=== PATIENT | female | born 1960 | race Caucasian/White ===

== ENCOUNTER 2018-05-22 15:34 | Inpatient (IN) | payer MEDICARE, MEDICAID ==
[~2018-05-22] VITALS: Ht 167.6 cm; Wt 79.0 kg
[2018-05-22] MEDS ORDERED: ALPR0.5T8 PO (15:53)
[2018-05-22] MEDS ORDERED: LEVE500T53 PO (15:53)
[2018-05-22] MEDS ORDERED: CARV12 PO (15:53)
[2018-05-22] MEDS ORDERED: GABA-531 PO (15:53)
[2018-05-22] MEDS ORDERED: PERCT PO (15:53)
[2018-05-22] MEDS ORDERED: AMLO-512 PO (15:53)
[2018-05-22] MEDS ORDERED: MIRT15 PO (15:53)
[2018-05-22] MEDS ORDERED: TRAZ150 PO (15:53)
[2018-05-22] MEDS ORDERED: CYCL10 PO (15:53)
[2018-05-22] MEDS ORDERED: DiphenhydrAMINE HCL 50 MG/ML VIAL IM ONE (16:15)
[2018-05-22] MEDS ORDERED: LORazepam 2 MG/ML VIAL IM ONE (16:15)
[2018-05-22] MEDS ORDERED: HALOPERIDOL LACTATE 5 MG/ML VIAL IM ONE (16:15)
[2018-05-22 16:31] LABS: BASOPHILS % (AUTO) 0.7 % (0.0-2.0); EOSINOPHILS % (AUTO) 2.4 % (1.0-6.0); HEMATOCRIT 33.3 % (36-46); HEMOGLOBIN 11.4 g/dL (12.0-16.0); LYMPHOCYTES # (AUTO) 1.2 K/uL (1.0-4.8); MEAN CORPUSCULAR HEMOGLOBIN 29.7 pg (26.0-34.0); MEAN CORPUSCULAR HGB CONC 34.2 G/dL (31.0-37.0); MEAN CORPUSCULAR VOLUME 87 fL (80-100); MONOCYTES # (AUTO) 0.6 K/uL (0.1-1.0); MONOCYTES % (AUTO) 8.7 % (2.0-9.0); NEUTROPHILS # (AUTO) 5.2 K/uL (1.8-7.7); NEUTROPHILS % (AUTO) 71.2 % (40.0-70.0); PLATELET COUNT (AUTO) 201 K/uL (150-450); RED BLOOD CELL COUNT(AUTO) 3.84 MIL/uL (4.00-5.20); RED CELL DISTRIBUTION WIDTH 12.8 % (11.5-14.5)
[2018-05-22 16:42] LABS: ANION GAP 11 mmol/L (8-16); CALCIUM, TOTAL 8.7 mg/dL (8.8-10.5); CARBON DIOXIDE 25 mmol/L (22-29); CHLORIDE 102 mmol/L (98-107); CREATININE 0.97 mg/dL (0.60-1.30); GLOMERULAR FILTR. RATE CALC 60 mL/min (>60); GLUCOSE,RANDOM 105 mg/dL (70-110); POTASSIUM 3.8 mmol/L (3.5-5.1); SODIUM SERUM 138 mmol/L (136-145); UREA NITROGEN, BLOOD 18 mg/dL (7-18)
[2018-05-22] MEDS ORDERED: ACETAMINOPHEN 325 MG TABLET PO PRN (16:45)
[2018-05-22 16:48] LABS: ALANINE AMINOTRANSFERASE 17 U/L (12-78); ALBUMIN 3.7 g/dL (3.4-5.0); ALKALINE PHOSPHATASE 76 U/L (46-116); ASPARTATE AMINOTRANSFERASE 21 U/L (15-37); BILIRUBIN,TOTAL 0.3 mg/dL (0.1-1.0); TOTAL PROTEIN, SERUM 7.8 g/dL (6.4-8.2)
[2018-05-22 18:11] VITALS: BP 123/58
[2018-05-22 18:14] LABS: APPEARANCE,URINE CLOUDY (CLEAR); BILIRUBIN,URINE NEGATIVE (NEGATIVE); GLUCOSE, URINE (UA) NEGATIVE (NEGATIVE); KETONES,URINE NEGATIVE (NEGATIVE); LEUKOCYTE ESTERASE ,URINE MODERATE (NEGATIVE); NITRATE,URINE NEGATIVE (NEGATIVE); OCCULT BLOOD,URINE SMALL (NEGATIVE); PROTEIN,URINE NEGATIVE (NEGATIVE); UROBILINOGEN,URINE 0.2 mg/dL (<=1.0)
[2018-05-22 18:17] LABS: AMPHET/METH SCREEN,URINE NEGATIVE (NEGATIVE); BARBITURATE SCREEN, URINE NEGATIVE (NEGATIVE); BENZODIAZEPINES SCREEN,URINE NEGATIVE (NEGATIVE); CANNABINOID SCREEN,URINE NEGATIVE (NEGATIVE); COCAINE SCREEN,URINE NEGATIVE (NEGATIVE); METHADONE SCREEN, URINE NEGATIVE (NEGATIVE); OPIATE SCREEN,URINE POSITIVE (NEGATIVE)
[2018-05-22 18:19] LABS: PHENCYCLIDINE SCREEN,URINE NEGATIVE (NEGATIVE)
[2018-05-22 18:21] LABS: BACTERIA,URINE Few /HPF (None Seen); SQUAMOUS EPITHELIAL CELL,UR Moderate /LPF (None Seen)
[2018-05-22] MEDS ORDERED: ONDANSETRON HCL 4 MG TABLET PO PRN (18:45)
[2018-05-22] MEDS ORDERED: GuaiFENesin/D-METHORPHAN [SUGAR-FREE] 200-20MG/10 ML SYRUP UDCUP PO PRN (18:45)
[2018-05-22] MEDS ORDERED: ALBUTEROL SULFATE HFA 90 MCG/PUFF 8 GM INHALER IH PRN (18:45)
[2018-05-22] MEDS ORDERED: MAGNESIUM HYDROXIDE SUSPENSION 30 ML UDCUP PO PRN (18:45)
[2018-05-22] MEDS ORDERED: LOPERAMIDE HCL 2 MG CAPSULE PO PRN (18:45)
[2018-05-22] MEDS ORDERED: MAG HYDROX/AL HYDROX/SIMETH ES 30 ML SUSPENSION UDCUP PO PRN (18:45)
[2018-05-22] MEDS ORDERED: NICOTINE 14 MG/24 HOUR PATCH TD PRN (18:45)
[2018-05-22] MEDS ORDERED: CloNIDine HCL 0.1 MG TABLET PO PRN (18:45)
[2018-05-22] MEDS ORDERED: PETROLATUM,WHITE 71 GM JELLY TP PRN (18:45)
[2018-05-22] MEDS: IBUPROFEN 400 MG TABLET PO PRN (18:51)
[2018-05-22] MEDS: GABAPENTIN 300 MG CAPSULE PO SCH (20:26)
[2018-05-22 21:07] VITALS: BP 136/89
[2018-05-22 21:30] VITALS: BP 118/66
[2018-05-22] MEDS: ZOLPIDEM TARTRATE 10 MG TABLET PO PRN (21:53)
[2018-05-22] MEDS: OLANZapine 5 MG RAPDIS TABLET PO PRN (22:03)
[2018-05-22 22:30] VITALS: BP 110/61
[2018-05-23] MEDS: LORazepam 2 MG TABLET PO PRN ×4 (02:52→23:58)
[2018-05-23] MEDS: IBUPROFEN 400 MG TABLET PO PRN ×2 (02:52→11:05)
[2018-05-23 02:54] VITALS: BP 133/72
[2018-05-23] MEDS ORDERED: PNEUMOCOCCAL VACCINE POLYVALENT 0.5 ML VIAL [PPSV23] IM ONE (03:15)
[2018-05-23 06:47] LABS: BASOPHILS % (AUTO) 0.5 % (0.0-2.0); EOSINOPHILS % (AUTO) 0.9 % (1.0-6.0); HEMATOCRIT 32.2 % (36-46); HEMOGLOBIN 11.3 g/dL (12.0-16.0); LYMPHOCYTES # (AUTO) 1.2 K/uL (1.0-4.8); LYMPHOCYTES % (AUTO) 24.2 % (22.0-44.0); MEAN CORPUSCULAR HEMOGLOBIN 30.4 pg (26.0-34.0); MEAN CORPUSCULAR VOLUME 87 fL (80-100); MONOCYTES # (AUTO) 0.5 K/uL (0.1-1.0); MONOCYTES % (AUTO) 9.2 % (2.0-9.0); NEUTROPHILS # (AUTO) 3.3 K/uL (1.8-7.7); NEUTROPHILS % (AUTO) 65.2 % (40.0-70.0); PLATELET COUNT (AUTO) 190 K/uL (150-450); RED BLOOD CELL COUNT(AUTO) 3.71 MIL/uL (4.00-5.20); RED CELL DISTRIBUTION WIDTH 12.7 % (11.5-14.5)
[2018-05-23 07:24] LABS: HEMOGLOBIN A1C 5.2 % (4.5-6.2)
[2018-05-23 07:35] LABS: ALANINE AMINOTRANSFERASE 15 U/L (12-78); ALBUMIN 3.5 g/dL (3.4-5.0); ALKALINE PHOSPHATASE 70 U/L (46-116); ANION GAP 10 mmol/L (8-16); ASPARTATE AMINOTRANSFERASE 22 U/L (15-37); BILIRUBIN,TOTAL 0.5 mg/dL (0.1-1.0); CALCIUM, TOTAL 8.4 mg/dL (8.8-10.5); CARBON DIOXIDE 27 mmol/L (22-29); CHLORIDE 106 mmol/L (98-107); CHOL/HDL RATIO 1.8 (3.9-5.7); CHOLESTEROL 153 mg/dL (131-200); CREATININE 0.71 mg/dL (0.60-1.30); GLOMERULAR FILTR. RATE CALC > 60 mL/min (>60); GLUCOSE,RANDOM 87 mg/dL (70-110); HDL CHOLESTEROL 87 mg/dL (40-60); LDL CHOL (CALC.) 61 mg/dL (0-130); POTASSIUM 3.8 mmol/L (3.5-5.1); SODIUM SERUM 143 mmol/L (136-145); THYROID STIMULATING HORMONE 0.66 uIU/mL (0.36-3.74); TOTAL PROTEIN, SERUM 7.6 g/dL (6.4-8.2); TRIGLYCERIDES 26 mg/dL (15-150); UREA NITROGEN, BLOOD 9 mg/dL (7-18)
[2018-05-23] MEDS: OLANZapine 5 MG RAPDIS TABLET PO PRN ×4 (08:00→21:04)
[2018-05-23] MEDS: AmLODIPine BESYLATE 10 MG TABLET PO SCH (08:00)
[2018-05-23] MEDS: CARVEDILOL 12.5 MG TABLET PO SCH ×2 (08:00→17:17)
[2018-05-23] MEDS: GABAPENTIN 300 MG CAPSULE PO SCH ×4 (08:00→20:22)
[2018-05-23] MEDS: LevETIRAcetam 500 MG TABLET PO SCH ×2 (08:00→17:17)
[2018-05-23 08:36] VITALS: BP 125/94
[2018-05-23] MEDS: CEPHALEXIN MONOHYDRATE 500 MG CAPSULE PO SCH ×3 (12:22→23:58)
[2018-05-23] MEDS ORDERED: ACETAMINOPHEN 325 MG TABLET PO PRN (13:00)
[2018-05-23] MEDS: OxyCODONE HCL/ACETAMINOPHEN 5-325 MG TABLET PO PRN (13:42)
[2018-05-23] MEDS: MIRTAZAPINE 15 MG TABLET PO SCH (20:22)
[2018-05-23] MEDS: TraZODone HCL 150 MG TABLET PO SCH (20:22)
[2018-05-23] MEDS: ZOLPIDEM TARTRATE 10 MG TABLET PO PRN (21:04)
[2018-05-24] MEDS: OxyCODONE HCL/ACETAMINOPHEN 5-325 MG TABLET PO PRN (07:37)
[2018-05-24] MEDS: CYCLOBENZAPRINE HCL 10 MG TABLET PO PRN (07:38)
[2018-05-24] MEDS: CEPHALEXIN MONOHYDRATE 500 MG CAPSULE PO SCH ×3 (07:38→23:54)
[2018-05-24] MEDS: LORazepam 2 MG TABLET PO PRN ×4 (07:39→23:54)
[2018-05-24] MEDS: CARVEDILOL 12.5 MG TABLET PO SCH ×2 (07:39→18:23)
[2018-05-24] MEDS: GABAPENTIN 300 MG CAPSULE PO SCH ×4 (07:39→20:29)
[2018-05-24] MEDS: OLANZapine 5 MG RAPDIS TABLET PO PRN ×2 (07:39→14:02)
[2018-05-24] MEDS: AmLODIPine BESYLATE 10 MG TABLET PO SCH (07:39)
[2018-05-24] MEDS: LevETIRAcetam 500 MG TABLET PO SCH ×2 (07:40→18:24)
[2018-05-24 08:00] VITALS: BP 140/85
[2018-05-24] MEDS: IBUPROFEN 400 MG TABLET PO PRN (14:02)
[2018-05-24] MEDS: MIRTAZAPINE 15 MG TABLET PO SCH (20:29)
[2018-05-24] MEDS: TraZODone HCL 150 MG TABLET PO SCH (20:29)
[2018-05-24] MEDS: DIVALPROEX SODIUM 500 MG DR TABLET PO SCH (20:29)
[2018-05-24] MEDS: ZOLPIDEM TARTRATE 10 MG TABLET PO PRN (23:54)
[2018-05-25] MEDS: OLANZapine 5 MG RAPDIS TABLET PO PRN (03:55)
[2018-05-25 04:09] VITALS: BP 144/87
[2018-05-25 07:35] VITALS: BP 132/92
[2018-05-25] MEDS: LORazepam 2 MG TABLET PO PRN (07:38)
[2018-05-25] MEDS: OxyCODONE HCL/ACETAMINOPHEN 5-325 MG TABLET PO PRN ×2 (07:40→19:53)
[2018-05-25] MEDS: LevETIRAcetam 500 MG TABLET PO SCH ×2 (08:33→16:35)
[2018-05-25] MEDS: DIVALPROEX SODIUM 500 MG DR TABLET PO SCH ×2 (08:33→20:43)
[2018-05-25] MEDS: GABAPENTIN 300 MG CAPSULE PO SCH ×4 (08:33→20:43)
[2018-05-25] MEDS: AmLODIPine BESYLATE 10 MG TABLET PO SCH (08:35)
[2018-05-25] MEDS: CARVEDILOL 12.5 MG TABLET PO SCH ×2 (08:35→16:35)
[2018-05-25] MEDS: CEPHALEXIN MONOHYDRATE 500 MG CAPSULE PO SCH ×2 (08:38→16:07)
[2018-05-25 16:33] VITALS: BP 121/81
[2018-05-25 19:53] VITALS: BP 122/67
[2018-05-25] MEDS: TraZODone HCL 150 MG TABLET PO SCH (20:42)
[2018-05-25] MEDS: MIRTAZAPINE 15 MG TABLET PO SCH (20:43)
[2018-05-26] MEDS: CEPHALEXIN MONOHYDRATE 500 MG CAPSULE PO SCH ×3 (00:32→16:34)
[2018-05-26] MEDS: ZOLPIDEM TARTRATE 10 MG TABLET PO PRN (00:34)
[2018-05-26] MEDS: LORazepam 2 MG TABLET PO PRN ×2 (00:34→08:38)
[2018-05-26] MEDS: IBUPROFEN 400 MG TABLET PO PRN (03:50)
[2018-05-26 08:35] VITALS: BP 132/84
[2018-05-26] MEDS: OxyCODONE HCL/ACETAMINOPHEN 5-325 MG TABLET PO PRN ×2 (08:37→17:51)
[2018-05-26] MEDS: GABAPENTIN 300 MG CAPSULE PO SCH ×4 (08:38→21:54)
[2018-05-26] MEDS: LevETIRAcetam 500 MG TABLET PO SCH ×2 (08:38→16:34)
[2018-05-26] MEDS: AmLODIPine BESYLATE 10 MG TABLET PO SCH (08:38)
[2018-05-26] MEDS: DIVALPROEX SODIUM 500 MG DR TABLET PO SCH ×2 (08:38→21:54)
[2018-05-26] MEDS: CARVEDILOL 12.5 MG TABLET PO SCH ×2 (08:38→16:34)
[2018-05-26 16:38] VITALS: BP 135/75
[2018-05-26 17:51] VITALS: BP 133/79
[2018-05-26] MEDS: MIRTAZAPINE 15 MG TABLET PO SCH (21:54)
[2018-05-26] MEDS: TraZODone HCL 150 MG TABLET PO SCH (21:54)
[2018-05-27] MEDS: CEPHALEXIN MONOHYDRATE 500 MG CAPSULE PO SCH ×3 (00:32→16:53)
[2018-05-27] MEDS: ZOLPIDEM TARTRATE 10 MG TABLET PO PRN ×2 (01:27→21:33)
[2018-05-27 08:00] VITALS: BP 121/90
[2018-05-27] MEDS: AmLODIPine BESYLATE 10 MG TABLET PO SCH (08:24)
[2018-05-27] MEDS: DIVALPROEX SODIUM 500 MG DR TABLET PO SCH ×2 (08:24→20:32)
[2018-05-27] MEDS: GABAPENTIN 300 MG CAPSULE PO SCH ×4 (08:24→20:32)
[2018-05-27] MEDS: LevETIRAcetam 500 MG TABLET PO SCH ×2 (08:24→16:53)
[2018-05-27] MEDS: LORazepam 2 MG TABLET PO PRN (08:25)
[2018-05-27] MEDS: CARVEDILOL 12.5 MG TABLET PO SCH ×2 (08:25→16:53)
[2018-05-27 16:00] VITALS: BP 126/79
[2018-05-27] MEDS: MIRTAZAPINE 15 MG TABLET PO SCH (20:32)
[2018-05-27] MEDS: TraZODone HCL 150 MG TABLET PO SCH (20:32)
[2018-05-28] MEDS: CEPHALEXIN MONOHYDRATE 500 MG CAPSULE PO SCH ×3 (00:18→17:03)
[2018-05-28] MEDS: LORazepam 2 MG TABLET PO PRN ×2 (01:10→08:47)
[2018-05-28 01:29] VITALS: BP 134/90
[2018-05-28] MEDS: OxyCODONE HCL/ACETAMINOPHEN 5-325 MG TABLET PO PRN ×2 (01:30→19:22)
[2018-05-28] MEDS: GABAPENTIN 300 MG CAPSULE PO SCH ×4 (08:47→20:34)
[2018-05-28] MEDS: AmLODIPine BESYLATE 10 MG TABLET PO SCH (08:47)
[2018-05-28] MEDS: LevETIRAcetam 500 MG TABLET PO SCH ×2 (08:47→17:03)
[2018-05-28] MEDS: DIVALPROEX SODIUM 500 MG DR TABLET PO SCH ×2 (08:48→20:34)
[2018-05-28] MEDS: CARVEDILOL 12.5 MG TABLET PO SCH ×2 (08:48→17:03)
[2018-05-28 09:23] VITALS: BP 120/72
[2018-05-28 13:07] LABS: BASOPHILS % (AUTO) 0.8 % (0.0-2.0); EOSINOPHILS % (AUTO) 3.6 % (1.0-6.0); HEMATOCRIT 36.1 % (36-46); HEMOGLOBIN 12.4 g/dL (12.0-16.0); LYMPHOCYTES # (AUTO) 1.6 K/uL (1.0-4.8); LYMPHOCYTES % (AUTO) 32.5 % (22.0-44.0); MEAN CORPUSCULAR HEMOGLOBIN 29.9 pg (26.0-34.0); MEAN CORPUSCULAR HGB CONC 34.2 G/dL (31.0-37.0); MEAN CORPUSCULAR VOLUME 87 fL (80-100); MONOCYTES # (AUTO) 0.5 K/uL (0.1-1.0); MONOCYTES % (AUTO) 11.2 % (2.0-9.0); NEUTROPHILS # (AUTO) 2.5 K/uL (1.8-7.7); NEUTROPHILS % (AUTO) 51.9 % (40.0-70.0); PLATELET COUNT (AUTO) 249 K/uL (150-450); RED BLOOD CELL COUNT(AUTO) 4.13 MIL/uL (4.00-5.20); RED CELL DISTRIBUTION WIDTH 12.5 % (11.5-14.5)
[2018-05-28 13:41] LABS: ALANINE AMINOTRANSFERASE 13 U/L (12-78); ALBUMIN 3.3 g/dL (3.4-5.0); ALKALINE PHOSPHATASE 75 U/L (46-116); ANION GAP 8 mmol/L (8-16); ASPARTATE AMINOTRANSFERASE 10 U/L (15-37); BILIRUBIN,TOTAL 0.2 mg/dL (0.1-1.0); CARBON DIOXIDE 30 mmol/L (22-29); CHLORIDE 105 mmol/L (98-107); CREATININE 0.57 mg/dL (0.60-1.30); GLOMERULAR FILTR. RATE CALC > 60 mL/min (>60); GLUCOSE,RANDOM 94 mg/dL (70-110); POTASSIUM 3.8 mmol/L (3.5-5.1); SODIUM SERUM 143 mmol/L (136-145); TOTAL PROTEIN, SERUM 7.4 g/dL (6.4-8.2); UREA NITROGEN, BLOOD 17 mg/dL (7-18)
[2018-05-28 16:08] VITALS: BP 131/78
[2018-05-28 18:29] LABS: APPEARANCE,URINE CLEAR (CLEAR); BILIRUBIN,URINE NEGATIVE (NEGATIVE); GLUCOSE, URINE (UA) NEGATIVE (NEGATIVE); KETONES,URINE NEGATIVE (NEGATIVE); LEUKOCYTE ESTERASE ,URINE NEGATIVE (NEGATIVE); NITRATE,URINE NEGATIVE (NEGATIVE); OCCULT BLOOD,URINE NEGATIVE (NEGATIVE); PROTEIN,URINE NEGATIVE (NEGATIVE)
[2018-05-28 18:32] LABS: BACTERIA,URINE None Seen /HPF (None Seen); RBC,URINE None Seen /HPF (0-2); WBC,URINE None Seen /HPF (0-5)
[2018-05-28 19:22] VITALS: BP 127/81
[2018-05-28] MEDS: TraZODone HCL 150 MG TABLET PO SCH (20:34)
[2018-05-28] MEDS: MIRTAZAPINE 15 MG TABLET PO SCH (20:34)
[2018-05-29] VITALS (8 sets, daily range): BP systolic 112–146; BP diastolic 76–86
[2018-05-29] MEDS: CEPHALEXIN MONOHYDRATE 500 MG CAPSULE PO SCH ×3 (00:04→16:22)
[2018-05-29] MEDS: IBUPROFEN 400 MG TABLET PO PRN (02:24)
[2018-05-29] MEDS: ZOLPIDEM TARTRATE 10 MG TABLET PO PRN (02:26)
[2018-05-29] MEDS: DIVALPROEX SODIUM 500 MG DR TABLET PO SCH ×2 (08:54→20:10)
[2018-05-29] MEDS: AmLODIPine BESYLATE 10 MG TABLET PO SCH (08:54)
[2018-05-29] MEDS: LevETIRAcetam 500 MG TABLET PO SCH ×2 (08:54→16:22)
[2018-05-29] MEDS: GABAPENTIN 300 MG CAPSULE PO SCH ×4 (08:54→20:10)
[2018-05-29] MEDS: CARVEDILOL 12.5 MG TABLET PO SCH ×2 (08:54→16:22)
[2018-05-29] MEDS: OxyCODONE HCL/ACETAMINOPHEN 5-325 MG TABLET PO PRN (13:40)
[2018-05-29] MEDS: MIRTAZAPINE 15 MG TABLET PO SCH (20:10)
[2018-05-29] MEDS: TraZODone HCL 150 MG TABLET PO SCH (20:10)
[2018-05-30] MEDS: CEPHALEXIN MONOHYDRATE 500 MG CAPSULE PO SCH ×3 (00:01→16:44)
[2018-05-30] MEDS: LORazepam 2 MG TABLET PO PRN ×2 (00:02→09:14)
[2018-05-30] MEDS: ZOLPIDEM TARTRATE 10 MG TABLET PO PRN (01:15)
[2018-05-30 08:13] VITALS: BP 131/92
[2018-05-30] MEDS: GABAPENTIN 300 MG CAPSULE PO SCH ×4 (09:14→20:27)
[2018-05-30] MEDS: AmLODIPine BESYLATE 10 MG TABLET PO SCH (09:14)
[2018-05-30] MEDS: DIVALPROEX SODIUM 500 MG DR TABLET PO SCH ×2 (09:14→20:27)
[2018-05-30] MEDS: LevETIRAcetam 500 MG TABLET PO SCH ×2 (09:14→16:44)
[2018-05-30] MEDS: CARVEDILOL 12.5 MG TABLET PO SCH ×2 (09:14→16:44)
[2018-05-30 16:56] VITALS: BP 155/91
[2018-05-30] MEDS: TraZODone HCL 150 MG TABLET PO SCH (20:27)
[2018-05-30] MEDS: MIRTAZAPINE 15 MG TABLET PO SCH (20:27)
[2018-05-30 22:17] VITALS: BP 134/64
[2018-05-30] MEDS: OxyCODONE HCL/ACETAMINOPHEN 5-325 MG TABLET PO PRN (22:17)
[2018-05-31] MEDS: CEPHALEXIN MONOHYDRATE 500 MG CAPSULE PO SCH ×3 (00:23→16:15)
[2018-05-31] MEDS: ZOLPIDEM TARTRATE 10 MG TABLET PO PRN (00:23)
[2018-05-31] MEDS: LevETIRAcetam 500 MG TABLET PO SCH ×2 (07:59→16:16)
[2018-05-31] MEDS: DIVALPROEX SODIUM 500 MG DR TABLET PO SCH ×2 (07:59→20:27)
[2018-05-31] MEDS: GABAPENTIN 300 MG CAPSULE PO SCH ×4 (07:59→20:27)
[2018-05-31] MEDS: AmLODIPine BESYLATE 10 MG TABLET PO SCH (07:59)
[2018-05-31] MEDS: CARVEDILOL 12.5 MG TABLET PO SCH ×2 (08:00→16:16)
[2018-05-31 09:40] VITALS: BP 123/89
[2018-05-31 12:30] VITALS: BP 132/80
[2018-05-31] MEDS: IBUPROFEN 400 MG TABLET PO PRN (12:47)
[2018-05-31 13:30] VITALS: BP 130/86
[2018-05-31 16:17] VITALS: BP 122/70
[2018-05-31] MEDS: MIRTAZAPINE 15 MG TABLET PO SCH (20:26)
[2018-05-31] MEDS: TraZODone HCL 150 MG TABLET PO SCH (20:27)
[2018-06-01] MEDS: LORazepam 2 MG TABLET PO PRN ×2 (04:38→08:56)
[2018-06-01 08:05] VITALS: BP 136/92
[2018-06-01] MEDS: DIVALPROEX SODIUM 500 MG DR TABLET PO SCH ×2 (08:06→20:09)
[2018-06-01] MEDS: GABAPENTIN 300 MG CAPSULE PO SCH ×4 (08:06→20:09)
[2018-06-01] MEDS: AmLODIPine BESYLATE 10 MG TABLET PO SCH (08:06)
[2018-06-01] MEDS: LevETIRAcetam 500 MG TABLET PO SCH ×2 (08:06→16:28)
[2018-06-01] MEDS: OxyCODONE HCL/ACETAMINOPHEN 5-325 MG TABLET PO PRN ×2 (08:06→16:29)
[2018-06-01] MEDS: CARVEDILOL 12.5 MG TABLET PO SCH ×2 (08:07→16:28)
[2018-06-01 09:06] VITALS: BP 134/90
[2018-06-01 16:17] VITALS: BP 121/72
[2018-06-01] MEDS: TraZODone HCL 150 MG TABLET PO SCH (20:09)
[2018-06-01] MEDS: MIRTAZAPINE 15 MG TABLET PO SCH (20:09)
[2018-06-02] MEDS: LORazepam 2 MG TABLET PO PRN ×3 (02:26→16:00)
[2018-06-02] MEDS: ZOLPIDEM TARTRATE 10 MG TABLET PO PRN ×2 (02:26→23:40)
[2018-06-02 08:50] VITALS: BP 133/80
[2018-06-02] MEDS: LevETIRAcetam 500 MG TABLET PO SCH ×2 (09:00→16:00)
[2018-06-02] MEDS: DIVALPROEX SODIUM 500 MG DR TABLET PO SCH ×2 (09:00→20:39)
[2018-06-02] MEDS: CARVEDILOL 12.5 MG TABLET PO SCH ×2 (09:00→16:00)
[2018-06-02] MEDS: GABAPENTIN 300 MG CAPSULE PO SCH ×4 (09:00→20:38)
[2018-06-02] MEDS: AmLODIPine BESYLATE 10 MG TABLET PO SCH (09:00)
[2018-06-02] MEDS: OLANZapine 5 MG RAPDIS TABLET PO PRN ×2 (09:01→18:19)
[2018-06-02 10:48] VITALS: BP 133/80
[2018-06-02] MEDS: OxyCODONE HCL/ACETAMINOPHEN 5-325 MG TABLET PO PRN ×2 (10:48→18:00)
[2018-06-02 17:59] VITALS: BP 134/80
[2018-06-02] MEDS: TraZODone HCL 150 MG TABLET PO SCH (20:38)
[2018-06-02] MEDS: MIRTAZAPINE 15 MG TABLET PO SCH (20:38)
[2018-06-02 23:30] VITALS: BP 129/77
[2018-06-03] MEDS: GABAPENTIN 300 MG CAPSULE PO SCH ×4 (07:54→21:06)
[2018-06-03] MEDS: CARVEDILOL 12.5 MG TABLET PO SCH ×2 (07:54→17:12)
[2018-06-03] MEDS: DIVALPROEX SODIUM 500 MG DR TABLET PO SCH ×2 (07:54→21:06)
[2018-06-03] MEDS: AmLODIPine BESYLATE 10 MG TABLET PO SCH (07:54)
[2018-06-03] MEDS: LevETIRAcetam 500 MG TABLET PO SCH ×2 (07:54→17:12)
[2018-06-03] MEDS: LORazepam 2 MG TABLET PO PRN (07:54)
[2018-06-03 08:00] VITALS: BP 131/71
[2018-06-03] MEDS: OxyCODONE HCL/ACETAMINOPHEN 5-325 MG TABLET PO PRN ×2 (10:36→21:06)
[2018-06-03 16:02] VITALS: BP 123/73
[2018-06-03 21:06] VITALS: BP 125/71
[2018-06-03] MEDS: ZOLPIDEM TARTRATE 10 MG TABLET PO PRN (21:06)
[2018-06-03] MEDS: TraZODone HCL 150 MG TABLET PO SCH (21:06)
[2018-06-03] MEDS: MIRTAZAPINE 15 MG TABLET PO SCH (21:06)
[2018-06-04] MEDS: LORazepam 2 MG TABLET PO PRN ×3 (00:20→16:36)
[2018-06-04 00:21] VITALS: BP 132/85
[2018-06-04 08:40] VITALS: BP 127/94
[2018-06-04] MEDS: GABAPENTIN 300 MG CAPSULE PO SCH ×4 (08:40→20:39)
[2018-06-04] MEDS: LevETIRAcetam 500 MG TABLET PO SCH ×2 (08:41→16:34)
[2018-06-04] MEDS: CARVEDILOL 12.5 MG TABLET PO SCH ×2 (08:41→16:35)
[2018-06-04] MEDS: AmLODIPine BESYLATE 10 MG TABLET PO SCH (08:41)
[2018-06-04] MEDS: DIVALPROEX SODIUM 500 MG DR TABLET PO SCH ×2 (08:41→20:38)
[2018-06-04] MEDS: CYCLOBENZAPRINE HCL 10 MG TABLET PO PRN (08:43)
[2018-06-04] MEDS: OxyCODONE HCL/ACETAMINOPHEN 5-325 MG TABLET PO PRN ×2 (08:50→18:13)
[2018-06-04 16:29] VITALS: BP 116/73
[2018-06-04] MEDS: OLANZapine 5 MG RAPDIS TABLET PO PRN (16:35)
[2018-06-04 18:12] VITALS: BP 120/67
[2018-06-04] MEDS: TraZODone HCL 150 MG TABLET PO SCH (20:38)
[2018-06-04] MEDS: ZOLPIDEM TARTRATE 10 MG TABLET PO PRN (20:38)
[2018-06-04] MEDS: MIRTAZAPINE 30 MG TABLET PO SCH (20:39)
[2018-06-05 00:10] VITALS: BP 128/77
[2018-06-05] MEDS: IBUPROFEN 400 MG TABLET PO PRN ×2 (00:21→10:36)
[2018-06-05] MEDS: LORazepam 2 MG TABLET PO PRN ×3 (04:37→17:41)
[2018-06-05 08:47] VITALS: BP 123/91
[2018-06-05] MEDS: GABAPENTIN 300 MG CAPSULE PO SCH ×4 (09:56→20:48)
[2018-06-05] MEDS: DOCUSATE SODIUM 100 MG CAPSULE PO PRN (09:56)
[2018-06-05] MEDS: AmLODIPine BESYLATE 10 MG TABLET PO SCH (09:56)
[2018-06-05] MEDS: LevETIRAcetam 500 MG TABLET PO SCH ×2 (09:56→16:35)
[2018-06-05] MEDS: DIVALPROEX SODIUM 500 MG DR TABLET PO SCH ×2 (09:56→20:48)
[2018-06-05] MEDS: CARVEDILOL 12.5 MG TABLET PO SCH ×2 (09:56→16:35)
[2018-06-05] MEDS: OLANZapine 5 MG RAPDIS TABLET PO PRN ×2 (10:02→17:41)
[2018-06-05] MEDS: CYCLOBENZAPRINE HCL 10 MG TABLET PO PRN (10:36)
[2018-06-05 17:04] VITALS: BP 125/75
[2018-06-05] MEDS: TraZODone HCL 150 MG TABLET PO SCH (20:48)
[2018-06-05] MEDS: MIRTAZAPINE 30 MG TABLET PO SCH (20:49)
[2018-06-06 07:00] VITALS: BP 113/52
[2018-06-06 08:30] VITALS: BP 128/57
[2018-06-06] MEDS: GABAPENTIN 300 MG CAPSULE PO SCH ×4 (09:25→20:31)
[2018-06-06] MEDS: AmLODIPine BESYLATE 10 MG TABLET PO SCH (09:25)
[2018-06-06] MEDS: DIVALPROEX SODIUM 500 MG DR TABLET PO SCH ×2 (09:25→20:30)
[2018-06-06] MEDS: LevETIRAcetam 500 MG TABLET PO SCH ×2 (09:25→16:36)
[2018-06-06] MEDS: CARVEDILOL 12.5 MG TABLET PO SCH ×2 (09:25→16:35)
[2018-06-06] MEDS: OLANZapine 5 MG RAPDIS TABLET PO PRN (09:27)
[2018-06-06] MEDS: LORazepam 2 MG TABLET PO PRN (09:27)
[2018-06-06] MEDS: IBUPROFEN 400 MG TABLET PO PRN (09:28)
[2018-06-06 17:03] VITALS: BP 134/72
[2018-06-06] MEDS: TraZODone HCL 150 MG TABLET PO SCH (20:29)
[2018-06-06] MEDS: MIRTAZAPINE 30 MG TABLET PO SCH (20:33)
[2018-06-07 07:45] VITALS: BP 136/94
[2018-06-07] MEDS: LORazepam 2 MG TABLET PO PRN (07:47)
[2018-06-07] MEDS: OLANZapine 5 MG RAPDIS TABLET PO PRN (07:47)
[2018-06-07] MEDS: CYCLOBENZAPRINE HCL 10 MG TABLET PO PRN (07:48)
[2018-06-07] MEDS: IBUPROFEN 400 MG TABLET PO PRN (07:49)
[2018-06-07] MEDS: GABAPENTIN 300 MG CAPSULE PO SCH ×4 (08:10→20:57)
[2018-06-07] MEDS: CARVEDILOL 12.5 MG TABLET PO SCH ×2 (08:10→17:08)
[2018-06-07] MEDS: DIVALPROEX SODIUM 500 MG DR TABLET PO SCH ×2 (08:10→20:57)
[2018-06-07] MEDS: AmLODIPine BESYLATE 10 MG TABLET PO SCH (08:10)
[2018-06-07] MEDS: LevETIRAcetam 500 MG TABLET PO SCH ×2 (08:10→17:08)
[2018-06-07 12:55] VITALS: BP 120/80
[2018-06-07] MEDS: OxyCODONE HCL/ACETAMINOPHEN 5-325 MG TABLET PO PRN (12:57)
[2018-06-07] MEDS: TraZODone HCL 150 MG TABLET PO SCH (20:57)
[2018-06-07] MEDS: MIRTAZAPINE 30 MG TABLET PO SCH (20:57)
[2018-06-08 00:46] VITALS: BP 127/92
[2018-06-08] MEDS: ZOLPIDEM TARTRATE 10 MG TABLET PO PRN (00:47)
[2018-06-08 09:36] VITALS: BP 136/61
[2018-06-08] MEDS: CARVEDILOL 12.5 MG TABLET PO SCH ×2 (09:40→16:52)
[2018-06-08] MEDS: LevETIRAcetam 500 MG TABLET PO SCH ×2 (09:40→16:52)
[2018-06-08] MEDS: AmLODIPine BESYLATE 10 MG TABLET PO SCH (09:40)
[2018-06-08] MEDS: DIVALPROEX SODIUM 500 MG DR TABLET PO SCH ×2 (09:40→21:03)
[2018-06-08] MEDS: GABAPENTIN 300 MG CAPSULE PO SCH ×4 (09:40→21:03)
[2018-06-08] MEDS: CYCLOBENZAPRINE HCL 10 MG TABLET PO PRN (09:40)
[2018-06-08] MEDS: OxyCODONE HCL/ACETAMINOPHEN 5-325 MG TABLET PO PRN (09:40)
[2018-06-08 19:50] VITALS: BP 117/74
[2018-06-08] MEDS: MIRTAZAPINE 30 MG TABLET PO SCH (21:03)
[2018-06-08] MEDS: TraZODone HCL 150 MG TABLET PO SCH (21:03)
[2018-06-09 00:06] VITALS: BP 126/72
[2018-06-09] MEDS: ZOLPIDEM TARTRATE 10 MG TABLET PO PRN (00:11)
[2018-06-09] MEDS: IBUPROFEN 400 MG TABLET PO PRN (00:11)
[2018-06-09] MEDS: LORazepam 2 MG TABLET PO PRN (04:44)
[2018-06-09] MEDS: OLANZapine 5 MG RAPDIS TABLET PO PRN (04:44)
[2018-06-09 06:48] VITALS: BP 110/73
[2018-06-09 08:39] VITALS: BP 130/86
[2018-06-09] MEDS: AmLODIPine BESYLATE 10 MG TABLET PO SCH (08:41)
[2018-06-09] MEDS: DIVALPROEX SODIUM 500 MG DR TABLET PO SCH ×2 (08:41→20:14)
[2018-06-09] MEDS: OxyCODONE HCL/ACETAMINOPHEN 5-325 MG TABLET PO PRN ×2 (08:41→16:49)
[2018-06-09] MEDS: LevETIRAcetam 500 MG TABLET PO SCH ×2 (08:41→16:50)
[2018-06-09] MEDS: GABAPENTIN 300 MG CAPSULE PO SCH ×4 (08:41→20:15)
[2018-06-09] MEDS: CARVEDILOL 12.5 MG TABLET PO SCH ×2 (08:41→16:50)
[2018-06-09 16:31] VITALS: BP 115/73
[2018-06-09] MEDS: TraZODone HCL 150 MG TABLET PO SCH (20:14)
[2018-06-09] MEDS: MIRTAZAPINE 30 MG TABLET PO SCH (20:14)
[2018-06-10 09:19] VITALS: BP 127/68
[2018-06-10] MEDS: CYCLOBENZAPRINE HCL 10 MG TABLET PO PRN (11:19)
[2018-06-10] MEDS: DOCUSATE SODIUM 100 MG CAPSULE PO PRN (11:20)
[2018-06-10] MEDS: AmLODIPine BESYLATE 10 MG TABLET PO SCH (11:20)
[2018-06-10] MEDS: LevETIRAcetam 500 MG TABLET PO SCH ×2 (11:20→17:11)
[2018-06-10] MEDS: CARVEDILOL 12.5 MG TABLET PO SCH ×2 (11:20→17:30)
[2018-06-10] MEDS: DIVALPROEX SODIUM 500 MG DR TABLET PO SCH ×2 (11:21→20:48)
[2018-06-10] MEDS: GABAPENTIN 300 MG CAPSULE PO SCH ×4 (11:22→20:48)
[2018-06-10] MEDS: LORazepam 2 MG TABLET PO PRN ×2 (11:23→23:27)
[2018-06-10 16:49] VITALS: BP 128/83
[2018-06-10] MEDS: MIRTAZAPINE 30 MG TABLET PO SCH (20:48)
[2018-06-10] MEDS: ZOLPIDEM TARTRATE 10 MG TABLET PO PRN (20:49)
[2018-06-10] MEDS: TraZODone HCL 150 MG TABLET PO SCH (20:49)
[2018-06-10 23:20] VITALS: BP 129/89
[2018-06-10] MEDS: OxyCODONE HCL/ACETAMINOPHEN 5-325 MG TABLET PO PRN (23:26)
[2018-06-11 07:25] VITALS: BP 118/89
[2018-06-11 08:05] VITALS: BP 130/70
[2018-06-11] MEDS: GABAPENTIN 300 MG CAPSULE PO SCH ×4 (08:10→20:42)
[2018-06-11] MEDS: AmLODIPine BESYLATE 10 MG TABLET PO SCH (08:10)
[2018-06-11] MEDS: DIVALPROEX SODIUM 500 MG DR TABLET PO SCH ×2 (08:10→20:41)
[2018-06-11] MEDS: CARVEDILOL 12.5 MG TABLET PO SCH ×2 (08:10→17:52)
[2018-06-11] MEDS: LORazepam 2 MG TABLET PO PRN (08:10)
[2018-06-11] MEDS: LevETIRAcetam 500 MG TABLET PO SCH ×2 (08:10→17:51)
[2018-06-11] MEDS: OLANZapine 5 MG RAPDIS TABLET PO PRN (08:10)
[2018-06-11] MEDS: OxyCODONE HCL/ACETAMINOPHEN 5-325 MG TABLET PO PRN ×2 (08:12→17:53)
[2018-06-11] MEDS ORDERED: SENNA 187 MG TABLET PO PRN (10:45)
[2018-06-11 16:05] VITALS: BP 126/78
[2018-06-11] MEDS: TraZODone HCL 150 MG TABLET PO SCH (20:41)
[2018-06-11] MEDS: MIRTAZAPINE 30 MG TABLET PO SCH (20:41)
[2018-06-12 04:10] VITALS: BP 118/69
[2018-06-12] MEDS: IBUPROFEN 400 MG TABLET PO PRN (04:12)
[2018-06-12] MEDS: LORazepam 2 MG TABLET PO PRN ×2 (04:15→10:30)
[2018-06-12] MEDS: LevETIRAcetam 500 MG TABLET PO SCH ×2 (10:30→17:26)
[2018-06-12] MEDS: AmLODIPine BESYLATE 10 MG TABLET PO SCH (10:30)
[2018-06-12] MEDS: CARVEDILOL 12.5 MG TABLET PO SCH ×2 (10:30→17:26)
[2018-06-12] MEDS: OLANZapine 5 MG RAPDIS TABLET PO PRN (10:30)
[2018-06-12] MEDS: GABAPENTIN 300 MG CAPSULE PO SCH ×4 (10:30→20:57)
[2018-06-12] MEDS: DIVALPROEX SODIUM 500 MG DR TABLET PO SCH ×2 (10:31→20:56)
[2018-06-12] MEDS: OxyCODONE HCL/ACETAMINOPHEN 5-325 MG TABLET PO PRN ×2 (13:18→17:28)
[2018-06-12 16:02] VITALS: BP 123/74
[2018-06-12] MEDS: TraZODone HCL 150 MG TABLET PO SCH (20:56)
[2018-06-12] MEDS: MIRTAZAPINE 30 MG TABLET PO SCH (20:56)
[2018-06-13] MEDS: ZOLPIDEM TARTRATE 10 MG TABLET PO PRN (01:20)
[2018-06-13 02:00] VITALS: BP 133/86
[2018-06-13] MEDS: IBUPROFEN 400 MG TABLET PO PRN (02:04)
[2018-06-13 06:52] LABS: APPEARANCE,URINE TURBID (CLEAR); BILIRUBIN,URINE NEGATIVE (NEGATIVE); GLUCOSE, URINE (UA) NEGATIVE (NEGATIVE); KETONES,URINE TRACE mg/dL (NEGATIVE); LEUKOCYTE ESTERASE ,URINE LARGE (NEGATIVE); NITRATE,URINE NEGATIVE (NEGATIVE); OCCULT BLOOD,URINE TRACE (NEGATIVE); PROTEIN,URINE POS 1+ (NEGATIVE); UROBILINOGEN,URINE 0.2 mg/dL (<=1.0)
[2018-06-13 07:05] LABS: BACTERIA,URINE Few /HPF (None Seen); RBC,URINE 0-2 /HPF (0-2); SQUAMOUS EPITHELIAL CELL,UR Few /LPF (None Seen); WBC,URINE >100 /HPF (0-5)
[2018-06-13 08:00] VITALS: BP 129/78
[2018-06-13] MEDS: OLANZapine 5 MG RAPDIS TABLET PO PRN ×2 (08:26→16:29)
[2018-06-13] MEDS: LevETIRAcetam 500 MG TABLET PO SCH ×2 (08:26→16:28)
[2018-06-13] MEDS: AmLODIPine BESYLATE 10 MG TABLET PO SCH (08:26)
[2018-06-13] MEDS: GABAPENTIN 300 MG CAPSULE PO SCH ×4 (08:26→20:53)
[2018-06-13] MEDS: DIVALPROEX SODIUM 500 MG DR TABLET PO SCH ×2 (08:26→20:53)
[2018-06-13] MEDS: CARVEDILOL 12.5 MG TABLET PO SCH ×2 (08:26→16:28)
[2018-06-13 10:30] VITALS: BP 129/80
[2018-06-13] MEDS: LORazepam 2 MG TABLET PO PRN ×2 (10:32→16:28)
[2018-06-13] MEDS: OxyCODONE HCL/ACETAMINOPHEN 5-325 MG TABLET PO PRN (10:34)
[2018-06-13 19:45] VITALS: BP 127/74
[2018-06-13] MEDS: MIRTAZAPINE 30 MG TABLET PO SCH (20:53)
[2018-06-13] MEDS: TraZODone HCL 150 MG TABLET PO SCH (20:53)
[2018-06-14 00:44] VITALS: BP 132/100
[2018-06-14] MEDS: LORazepam 2 MG TABLET PO PRN (00:46)
[2018-06-14] MEDS: ZOLPIDEM TARTRATE 10 MG TABLET PO PRN (00:46)
[2018-06-14 09:30] VITALS: BP 138/80
[2018-06-14] MEDS: AmLODIPine BESYLATE 10 MG TABLET PO SCH (09:36)
[2018-06-14] MEDS: LevETIRAcetam 500 MG TABLET PO SCH ×2 (09:36→16:04)
[2018-06-14] MEDS: DIVALPROEX SODIUM 500 MG DR TABLET PO SCH ×2 (09:36→20:46)
[2018-06-14] MEDS: GABAPENTIN 300 MG CAPSULE PO SCH ×4 (09:36→20:45)
[2018-06-14] MEDS: CARVEDILOL 12.5 MG TABLET PO SCH ×2 (09:36→16:04)
[2018-06-14] MEDS: CEPHALEXIN MONOHYDRATE 500 MG CAPSULE PO SCH ×3 (09:36→16:04)
[2018-06-14] MEDS: OxyCODONE HCL/ACETAMINOPHEN 5-325 MG TABLET PO PRN (09:36)
[2018-06-14] MEDS: CYCLOBENZAPRINE HCL 10 MG TABLET PO PRN (09:37)
[2018-06-14 16:08] VITALS: BP 110/85
[2018-06-14] MEDS: MIRTAZAPINE 30 MG TABLET PO SCH (20:45)
[2018-06-14] MEDS: TraZODone HCL 150 MG TABLET PO SCH (20:46)
[2018-06-15 04:40] VITALS: BP 133/84
[2018-06-15 08:05] VITALS: BP 115/93
[2018-06-15] MEDS: CEPHALEXIN MONOHYDRATE 500 MG CAPSULE PO SCH ×3 (08:41→16:19)
[2018-06-15] MEDS: DIVALPROEX SODIUM 500 MG DR TABLET PO SCH ×2 (08:41→20:52)
[2018-06-15] MEDS: CARVEDILOL 12.5 MG TABLET PO SCH ×2 (08:42→16:19)
[2018-06-15] MEDS: LevETIRAcetam 500 MG TABLET PO SCH ×2 (08:42→16:19)
[2018-06-15] MEDS: GABAPENTIN 300 MG CAPSULE PO SCH ×4 (08:42→20:53)
[2018-06-15] MEDS: AmLODIPine BESYLATE 10 MG TABLET PO SCH (08:42)
[2018-06-15] MEDS: OLANZapine 5 MG RAPDIS TABLET PO PRN (08:46)
[2018-06-15] MEDS: LORazepam 2 MG TABLET PO PRN (08:46)
[2018-06-15 13:00] VITALS: BP 122/84
[2018-06-15] MEDS: IBUPROFEN 400 MG TABLET PO PRN (13:01)
[2018-06-15 14:01] VITALS: BP 118/76
[2018-06-15 16:30] VITALS: BP 110/77
[2018-06-15] MEDS: TraZODone HCL 150 MG TABLET PO SCH (20:53)
[2018-06-15] MEDS: MIRTAZAPINE 30 MG TABLET PO SCH (21:01)
[2018-06-16 08:35] VITALS: BP 114/66
[2018-06-16] MEDS: GABAPENTIN 300 MG CAPSULE PO SCH ×4 (08:42→20:55)
[2018-06-16] MEDS: AmLODIPine BESYLATE 10 MG TABLET PO SCH (08:42)
[2018-06-16] MEDS: LevETIRAcetam 500 MG TABLET PO SCH ×2 (08:42→16:50)
[2018-06-16] MEDS: DIVALPROEX SODIUM 500 MG DR TABLET PO SCH ×2 (08:42→20:55)
[2018-06-16] MEDS: CEPHALEXIN MONOHYDRATE 500 MG CAPSULE PO SCH ×3 (08:43→16:50)
[2018-06-16] MEDS: CARVEDILOL 12.5 MG TABLET PO SCH ×2 (08:43→16:50)
[2018-06-16] MEDS: OLANZapine 5 MG RAPDIS TABLET PO PRN (08:44)
[2018-06-16] MEDS: LORazepam 2 MG TABLET PO PRN (08:44)
[2018-06-16 16:18] VITALS: BP 117/74
[2018-06-16] MEDS: MIRTAZAPINE 30 MG TABLET PO SCH (20:55)
[2018-06-16] MEDS: TraZODone HCL 150 MG TABLET PO SCH (20:55)
[2018-06-17] MEDS: DIVALPROEX SODIUM 500 MG DR TABLET PO SCH ×2 (08:57→20:36)
[2018-06-17] MEDS: LevETIRAcetam 500 MG TABLET PO SCH ×2 (08:57→16:32)
[2018-06-17] MEDS: CARVEDILOL 12.5 MG TABLET PO SCH ×2 (08:57→16:32)
[2018-06-17] MEDS: GABAPENTIN 300 MG CAPSULE PO SCH ×4 (08:57→20:36)
[2018-06-17] MEDS: CEPHALEXIN MONOHYDRATE 500 MG CAPSULE PO SCH ×3 (08:57→16:32)
[2018-06-17] MEDS: AmLODIPine BESYLATE 10 MG TABLET PO SCH (08:57)
[2018-06-17] MEDS: LORazepam 2 MG TABLET PO PRN (09:04)
[2018-06-17] MEDS: OLANZapine 5 MG RAPDIS TABLET PO PRN (09:04)
[2018-06-17 16:03] VITALS: BP 138/89
[2018-06-17] MEDS: TraZODone HCL 150 MG TABLET PO SCH (20:36)
[2018-06-17] MEDS: MIRTAZAPINE 30 MG TABLET PO SCH (20:36)
[2018-06-18 08:10] VITALS: BP 137/83
[2018-06-18] MEDS: LORazepam 2 MG TABLET PO PRN (08:13)
[2018-06-18] MEDS: OxyCODONE HCL/ACETAMINOPHEN 5-325 MG TABLET PO PRN (08:13)
[2018-06-18] MEDS: LevETIRAcetam 500 MG TABLET PO SCH ×2 (08:14→17:39)
[2018-06-18] MEDS: DIVALPROEX SODIUM 500 MG DR TABLET PO SCH ×2 (08:14→20:04)
[2018-06-18] MEDS: AmLODIPine BESYLATE 10 MG TABLET PO SCH (08:14)
[2018-06-18] MEDS: CEPHALEXIN MONOHYDRATE 500 MG CAPSULE PO SCH ×3 (08:14→17:39)
[2018-06-18] MEDS: CARVEDILOL 12.5 MG TABLET PO SCH ×2 (08:14→17:39)
[2018-06-18] MEDS: GABAPENTIN 300 MG CAPSULE PO SCH ×4 (08:14→20:04)
[2018-06-18] MEDS: CYCLOBENZAPRINE HCL 10 MG TABLET PO PRN (08:15)
[2018-06-18 19:42] VITALS: BP 121/77
[2018-06-18] MEDS: MIRTAZAPINE 30 MG TABLET PO SCH (20:04)
[2018-06-18] MEDS: TraZODone HCL 150 MG TABLET PO SCH (20:04)
[2018-06-18] MEDS: ZOLPIDEM TARTRATE 10 MG TABLET PO PRN (23:37)
[2018-06-19 00:04] VITALS: BP 118/75
[2018-06-19 06:49] VITALS: BP 123/69
[2018-06-19] MEDS: OxyCODONE HCL/ACETAMINOPHEN 5-325 MG TABLET PO PRN (06:57)
[2018-06-19 08:05] VITALS: BP 132/88
[2018-06-19] MEDS: GABAPENTIN 300 MG CAPSULE PO SCH ×4 (08:33→20:09)
[2018-06-19] MEDS: CEPHALEXIN MONOHYDRATE 500 MG CAPSULE PO SCH ×3 (08:33→17:33)
[2018-06-19] MEDS: AmLODIPine BESYLATE 10 MG TABLET PO SCH (08:33)
[2018-06-19] MEDS: CARVEDILOL 12.5 MG TABLET PO SCH ×2 (08:33→17:33)
[2018-06-19] MEDS: LevETIRAcetam 500 MG TABLET PO SCH ×2 (08:33→17:33)
[2018-06-19] MEDS: DIVALPROEX SODIUM 500 MG DR TABLET PO SCH ×2 (08:33→20:09)
[2018-06-19 19:12] VITALS: BP 136/86
[2018-06-19] MEDS: TraZODone HCL 150 MG TABLET PO SCH (20:09)
[2018-06-19] MEDS: MIRTAZAPINE 30 MG TABLET PO SCH (20:09)
[2018-06-19] MEDS: ZOLPIDEM TARTRATE 10 MG TABLET PO PRN (23:18)
[2018-06-20 01:00] VITALS: BP 131/78
[2018-06-20] MEDS: LORazepam 2 MG TABLET PO PRN ×4 (01:02→21:39)
[2018-06-20] MEDS: IBUPROFEN 400 MG TABLET PO PRN (01:03)
[2018-06-20 09:55] VITALS: BP 123/87
[2018-06-20] MEDS: CYCLOBENZAPRINE HCL 10 MG TABLET PO PRN (09:58)
[2018-06-20] MEDS: OxyCODONE HCL/ACETAMINOPHEN 5-325 MG TABLET PO PRN (09:58)
[2018-06-20] MEDS: CARVEDILOL 12.5 MG TABLET PO SCH ×2 (09:59→16:12)
[2018-06-20] MEDS: AmLODIPine BESYLATE 10 MG TABLET PO SCH (09:59)
[2018-06-20] MEDS: LevETIRAcetam 500 MG TABLET PO SCH ×2 (09:59→16:12)
[2018-06-20] MEDS: GABAPENTIN 300 MG CAPSULE PO SCH ×4 (09:59→20:15)
[2018-06-20] MEDS: CEPHALEXIN MONOHYDRATE 500 MG CAPSULE PO SCH ×3 (09:59→16:12)
[2018-06-20] MEDS: DIVALPROEX SODIUM 500 MG DR TABLET PO SCH (09:59)
[2018-06-20] MEDS: OLANZapine 5 MG RAPDIS TABLET PO PRN ×2 (16:13→21:39)
[2018-06-20 18:31] VITALS: BP 136/65
[2018-06-20] MEDS: MIRTAZAPINE 30 MG TABLET PO SCH (20:15)
[2018-06-20] MEDS: ZOLPIDEM TARTRATE 10 MG TABLET PO PRN (20:15)
[2018-06-21 02:18] VITALS: BP 131/92
[2018-06-21] MEDS: OxyCODONE HCL/ACETAMINOPHEN 5-325 MG TABLET PO PRN ×2 (02:20→16:05)
[2018-06-21 09:20] VITALS: BP 135/78
[2018-06-21] MEDS: AmLODIPine BESYLATE 10 MG TABLET PO SCH (09:35)
[2018-06-21] MEDS: LevETIRAcetam 500 MG TABLET PO SCH ×2 (09:35→16:05)
[2018-06-21] MEDS: CARVEDILOL 12.5 MG TABLET PO SCH ×2 (09:35→16:05)
[2018-06-21] MEDS: GABAPENTIN 300 MG CAPSULE PO SCH ×4 (09:35→21:11)
[2018-06-21] MEDS: IBUPROFEN 400 MG TABLET PO PRN (10:00)
[2018-06-21] MEDS: LORazepam 2 MG TABLET PO PRN (10:00)
[2018-06-21] MEDS: CYCLOBENZAPRINE HCL 10 MG TABLET PO PRN (10:00)
[2018-06-21 16:00] VITALS: BP 138/59
[2018-06-21] MEDS: MIRTAZAPINE 30 MG TABLET PO SCH (21:11)
[2018-06-22] MEDS: ZOLPIDEM TARTRATE 10 MG TABLET PO PRN (00:21)
[2018-06-22 08:04] VITALS: BP 116/63
[2018-06-22] MEDS: AmLODIPine BESYLATE 10 MG TABLET PO SCH (09:45)
[2018-06-22] MEDS: GABAPENTIN 300 MG CAPSULE PO SCH ×4 (09:45→20:14)
[2018-06-22] MEDS: LevETIRAcetam 500 MG TABLET PO SCH ×2 (09:45→17:30)
[2018-06-22 09:46] VITALS: BP 116/63
[2018-06-22] MEDS: LORazepam 2 MG TABLET PO PRN (09:46)
[2018-06-22] MEDS: CARVEDILOL 12.5 MG TABLET PO SCH ×2 (09:46→17:30)
[2018-06-22] MEDS: OxyCODONE HCL/ACETAMINOPHEN 5-325 MG TABLET PO PRN (09:46)
[2018-06-22 16:05] VITALS: BP 119/78
[2018-06-22] MEDS: MIRTAZAPINE 30 MG TABLET PO SCH (20:14)
[2018-06-23] MEDS: ZOLPIDEM TARTRATE 10 MG TABLET PO PRN (00:34)
[2018-06-23] MEDS: LORazepam 2 MG TABLET PO PRN (04:43)
[2018-06-23 07:15] VITALS: BP 124/80
[2018-06-23 07:45] VITALS: BP 130/94
[2018-06-23] MEDS: AmLODIPine BESYLATE 10 MG TABLET PO SCH (07:49)
[2018-06-23] MEDS: LevETIRAcetam 500 MG TABLET PO SCH ×2 (07:49→17:30)
[2018-06-23] MEDS: CARVEDILOL 12.5 MG TABLET PO SCH ×2 (07:49→17:30)
[2018-06-23] MEDS: GABAPENTIN 300 MG CAPSULE PO SCH ×4 (07:49→20:26)
[2018-06-23] MEDS: OxyCODONE HCL/ACETAMINOPHEN 5-325 MG TABLET PO PRN (07:50)
[2018-06-23 16:28] VITALS: BP 126/74
[2018-06-23] MEDS: MIRTAZAPINE 30 MG TABLET PO SCH (20:27)
[2018-06-24] MEDS: ZOLPIDEM TARTRATE 10 MG TABLET PO PRN ×2 (00:24→22:59)
[2018-06-24 00:25] VITALS: BP 125/73
[2018-06-24] MEDS: LORazepam 2 MG TABLET PO PRN (01:18)
[2018-06-24] MEDS: GABAPENTIN 300 MG CAPSULE PO SCH ×4 (09:48→20:28)
[2018-06-24] MEDS: LevETIRAcetam 500 MG TABLET PO SCH ×2 (09:48→17:20)
[2018-06-24] MEDS: CARVEDILOL 12.5 MG TABLET PO SCH ×2 (09:55→17:20)
[2018-06-24] MEDS: AmLODIPine BESYLATE 10 MG TABLET PO SCH (09:56)
[2018-06-24] MEDS: OxyCODONE HCL/ACETAMINOPHEN 5-325 MG TABLET PO PRN ×2 (11:32→20:27)
[2018-06-24 17:32] VITALS: BP 128/70
[2018-06-24 20:26] VITALS: BP 120/69
[2018-06-24] MEDS: OLANZapine 5 MG RAPDIS TABLET PO PRN (20:27)
[2018-06-24] MEDS: MIRTAZAPINE 30 MG TABLET PO SCH (20:27)
[2018-06-25 01:49] VITALS: BP 120/77
[2018-06-25] MEDS: IBUPROFEN 400 MG TABLET PO PRN ×2 (01:50→10:53)
[2018-06-25] MEDS: OLANZapine 5 MG RAPDIS TABLET PO PRN ×2 (01:50→08:03)
[2018-06-25] MEDS: OxyCODONE HCL/ACETAMINOPHEN 5-325 MG TABLET PO PRN ×2 (05:19→14:45)
[2018-06-25] MEDS: LevETIRAcetam 500 MG TABLET PO SCH ×2 (08:01→16:13)
[2018-06-25] MEDS: AmLODIPine BESYLATE 10 MG TABLET PO SCH (08:01)
[2018-06-25] MEDS: GABAPENTIN 300 MG CAPSULE PO SCH ×4 (08:01→20:30)
[2018-06-25] MEDS: CARVEDILOL 12.5 MG TABLET PO SCH ×2 (08:01→16:13)
[2018-06-25 08:03] VITALS: BP 149/96
[2018-06-25] MEDS: LORazepam 2 MG TABLET PO PRN (08:03)
[2018-06-25 10:53] VITALS: BP 138/86
[2018-06-25 11:53] VITALS: BP 132/86
[2018-06-25 14:45] VITALS: BP 136/84
[2018-06-25 16:26] VITALS: BP 128/76
[2018-06-25] MEDS: MIRTAZAPINE 30 MG TABLET PO SCH (20:30)
[2018-06-25] MEDS: ZOLPIDEM TARTRATE 10 MG TABLET PO PRN (21:19)
[2018-06-26] MEDS: OxyCODONE HCL/ACETAMINOPHEN 5-325 MG TABLET PO PRN (00:34)
[2018-06-26 00:38] VITALS: BP 139/79
[2018-06-26] MEDS: LORazepam 2 MG TABLET PO PRN ×2 (03:07→13:35)
[2018-06-26] MEDS: CYCLOBENZAPRINE HCL 10 MG TABLET PO PRN (03:37)
[2018-06-26] MEDS ORDERED: ACETAMINOPHEN 325 MG TABLET PO PRN (07:45)
[2018-06-26 08:32] VITALS: BP 135/82
[2018-06-26] MEDS: LevETIRAcetam 500 MG TABLET PO SCH ×2 (08:32→17:15)
[2018-06-26] MEDS: AmLODIPine BESYLATE 10 MG TABLET PO SCH (08:32)
[2018-06-26] MEDS: GABAPENTIN 300 MG CAPSULE PO SCH ×4 (08:32→20:33)
[2018-06-26] MEDS: IBUPROFEN 400 MG TABLET PO PRN (08:32)
[2018-06-26] MEDS: CARVEDILOL 12.5 MG TABLET PO SCH ×2 (08:33→17:14)
[2018-06-26 16:03] VITALS: BP 133/84
[2018-06-26] MEDS: MIRTAZAPINE 30 MG TABLET PO SCH (20:33)
[2018-06-26] MEDS: ZOLPIDEM TARTRATE 10 MG TABLET PO PRN (23:13)
[2018-06-27 01:15] VITALS: BP 136/90
[2018-06-27] MEDS: IBUPROFEN 400 MG TABLET PO PRN ×2 (01:19→14:38)
[2018-06-27] MEDS: LORazepam 2 MG TABLET PO PRN (01:19)
[2018-06-27 08:00] VITALS: BP 121/58
[2018-06-27] MEDS: GABAPENTIN 300 MG CAPSULE PO SCH ×2 (08:03→12:25)
[2018-06-27] MEDS: AmLODIPine BESYLATE 10 MG TABLET PO SCH (08:03)
[2018-06-27] MEDS: CARVEDILOL 12.5 MG TABLET PO SCH (08:03)
[2018-06-27] MEDS: LevETIRAcetam 500 MG TABLET PO SCH (08:03)
[2018-06-27] MEDS: OxyCODONE HCL/ACETAMINOPHEN 5-325 MG TABLET PO PRN (08:04)
[2018-06-27 08:35] VITALS: BP 123/60
== END 2018-06-27 16:30 | DRG 885 ==
LOC: EMS 15:55 → 3EC 17:25 → 3EI 06-03 08:15
PROVIDERS: ADMIT Psychiatry & Neurology Psychiatry; ATTEND Psychiatry & Neurology Psychiatry
DX: F33.2 Major depressive disorder, recurrent severe without psychotic features (principal); N39.0 Urinary tract infection, site not specified; R45.851 Suicidal ideations; D64.9 Anemia, unspecified; G31.84 Mild cognitive impairment of uncertain or unknown etiology; G40.909 Epilepsy, unspecified, not intractable, without status epilepticus; I10 Essential (primary) hypertension; Z96.649 Presence of unspecified artificial hip joint; J30.2 Other seasonal allergic rhinitis; M19.90 Unspecified osteoarthritis, unspecified site; Z78.1 Physical restraint status; Z81.8 Family history of other mental and behavioral disorders; Z91.5 Personal history of self-harm; Z79.899 Other long term (current) drug therapy; Z79.82 Long term (current) use of aspirin
CPT/HCPCS: 73503; 83036; 84443; 87081; 87086; 96372; 97110; 97116; 97162; 97166; 97530; 97535; G0480; J1200; J1630; J2060

== ENCOUNTER 2023-02-07 15:46 | Inpatient (IN) | payer MEDICARE, MEDICAID ==
[~2023-02-07] VITALS: Ht 165.1 cm; Wt 88.0 kg
[~2023-02-07 15:46] MED LIST: AMLO-258 PO; CARV12 PO; GABA-1181 PO; LEVE500T20 PO; MIRT-89 PO
[2023-02-07 17:12] LABS: BASOPHILS % (AUTO) 0.8 % (0.0-2.0); EOSINOPHILS % (AUTO) 2.7 % (1.0-6.0); HEMOGLOBIN 12.9 g/dL (12.0-16.0); LYMPHOCYTES # (AUTO) 1.4 K/uL (1.0-4.8); MEAN CORPUSCULAR HEMOGLOBIN 29.1 pg (26.0-34.0); MEAN CORPUSCULAR VOLUME 88 fL (80-100); MONOCYTES # (AUTO) 0.5 K/uL (0.1-1.0); MONOCYTES % (AUTO) 9.5 % (2.0-9.0); NEUTROPHILS # (AUTO) 2.9 K/uL (1.8-7.7); PLATELET COUNT (AUTO) 168 K/uL (150-450); RED BLOOD CELL COUNT(AUTO) 4.42 MIL/uL (4.00-5.20); RED CELL DISTRIBUTION WIDTH 13.7 % (11.5-14.5)
[2023-02-07 17:33] LABS: ALBUMIN 4.1 g/dL (3.4-5.0); ALKALINE PHOSPHATASE 66 U/L (46-116); ANION GAP 11 mmol/L (8-16); ASPARTATE AMINOTRANSFERASE 13 U/L (15-37); BILIRUBIN,TOTAL 0.4 mg/dL (0.1-1.0); CALCIUM, TOTAL 9.5 mg/dL (8.8-10.5); CARBON DIOXIDE 28 mmol/L (22-29); CHLORIDE 103 mmol/L (98-107); CREATININE 1.86 mg/dL (0.60-1.30); GLOMERULAR FILTR. RATE CALC 28 mL/min (>60); GLUCOSE,RANDOM 94 mg/dL (70-110); POTASSIUM 4.3 mmol/L (3.5-5.1); SODIUM SERUM 142 mmol/L (136-145); TOTAL PROTEIN, SERUM 8.1 g/dL (6.4-8.2)
[2023-02-07 17:45] LABS: ALANINE AMINOTRANSFERASE < 6 U/L (12-78)
[2023-02-07] MEDS ORDERED: LORazepam 1 MG TABLET PO ONE ×2 (17:45)
[2023-02-07] MEDS ORDERED: LORazepam 2 MG/ML VIAL IM ONE (22:45)
[2023-02-07] MEDS ORDERED: DiphenhydrAMINE HCL 50 MG/ML VIAL IM ONE (22:45)
[2023-02-07] MEDS ORDERED: HALOPERIDOL LACTATE 5 MG/ML VIAL IM ONE (22:45)
[2023-02-07 23:00] LABS: COVID AG,FIA SOURCE NASOPHARYNGEAL
[2023-02-08] MEDS ORDERED: ACETAMINOPHEN 500 MG TABLET PO ONE (02:45)
[2023-02-08] MEDS ORDERED: LIDOCAINE 5% TRANSDERMAL PATCH TD ONE (02:45)
[2023-02-08] MEDS: HALOPERIDOL 5 MG TABLET PO PRN ×2 (06:30→12:20)
[2023-02-08] MEDS: LORazepam 2 MG TABLET PO PRN ×2 (06:30→12:20)
[2023-02-08 16:42] VITALS: BP 135/95; PULSE 78; RESP 18; TEMP 97.6; O2SAT 97
[2023-02-08] MEDS ORDERED: MIRT-149 PO (17:29)
[2023-02-08] MEDS: LevETIRAcetam 500 MG TABLET PO SCH (18:17)
[2023-02-08] MEDS: CARVEDILOL 12.5 MG TABLET PO SCH (18:17)
[2023-02-08 20:30] VITALS: BP 109/74; PULSE 72; RESP 18; TEMP 98.1; O2SAT 97
[2023-02-08] MEDS: GABAPENTIN 300 MG CAPSULE PO SCH (21:00)
[2023-02-08] MEDS: ZOLPIDEM TARTRATE 10 MG TABLET PO PRN (21:29)
[2023-02-08] MEDS ORDERED: LOPERAMIDE HCL 2 MG CAPSULE ONE (22:13)
[2023-02-08] MEDS ORDERED: ALBUTEROL SULFATE HFA 90 MCG/PUFF 8 GM INHALER IH PRN (22:15)
[2023-02-08] MEDS ORDERED: MAGNESIUM HYDROXIDE SUSPENSION 30 ML UDCUP PO PRN (22:15)
[2023-02-08] MEDS ORDERED: CloNIDine HCL 0.1 MG TABLET PO PRN (22:15)
[2023-02-08] MEDS ORDERED: ACETAMINOPHEN 325 MG TABLET PO PRN (22:15)
[2023-02-08] MEDS ORDERED: PETROLATUM,WHITE 28 GM JELLY TP PRN (22:15)
[2023-02-08] MEDS ORDERED: NICOTINE 14 MG/24 HOUR PATCH TD PRN (22:15)
[2023-02-08] MEDS ORDERED: ONDANSETRON HCL 4 MG TABLET PO PRN (22:15)
[2023-02-08] MEDS ORDERED: MAG HYDROX/AL HYDROX/SIMETH ES 30 ML SUSPENSION UDCUP PO PRN (22:15)
[2023-02-08] MEDS ORDERED: DOCUSATE SODIUM 100 MG CAPSULE PO PRN (22:15)
[2023-02-08] MEDS: LOPERAMIDE HCL 2 MG CAPSULE PO PRN (22:18)
[2023-02-08] MEDS: TraZODone HCL 100 MG TABLET PO SCH (22:45)
[2023-02-08] MEDS: QUEtiapine FUMARATE 100 MG TABLET PO SCH (22:45)
[2023-02-08] MEDS ORDERED: SERT-440 PO (22:50)
[2023-02-08] MEDS ORDERED: MIRT45TA83 PO (22:50)
[2023-02-08] MEDS ORDERED: BUSP15 PO (22:50)
[2023-02-08] MEDS ORDERED: QUET50TA24 PO (22:50)
[2023-02-08] MEDS ORDERED: TRAZ-257 PO (22:50)
[2023-02-08] MEDS: MIRTAZAPINE 15 MG TABLET PO SCH (23:00)
[2023-02-09] VITALS (7 sets, daily range): BP systolic 116–137; BP diastolic 66–81; PULSE 70–83; RESP 18–19; TEMP 97–98.2; O2SAT 95–97
[2023-02-09] MEDS ORDERED: LOPERAMIDE HCL 2 MG CAPSULE PO PRN (07:00)
[2023-02-09] MEDS ORDERED: DOCUSATE SODIUM 100 MG CAPSULE PO PRN (07:00)
[2023-02-09] MEDS ORDERED: MAG HYDROX/AL HYDROX/SIMETH ES 30 ML SUSPENSION UDCUP PO PRN (07:00)
[2023-02-09] MEDS ORDERED: NICOTINE 14 MG/24 HOUR PATCH TD PRN (07:00)
[2023-02-09] MEDS ORDERED: PETROLATUM,WHITE 28 GM JELLY TP PRN (07:00)
[2023-02-09] MEDS ORDERED: GuaiFENesin/D-METHORPHAN [SUGAR-FREE] 200-20MG/10 ML SYRUP UDCUP PO PRN (07:00)
[2023-02-09] MEDS ORDERED: ALBUTEROL SULFATE HFA 90 MCG/PUFF 8 GM INHALER IH PRN (07:00)
[2023-02-09] MEDS ORDERED: MAGNESIUM HYDROXIDE SUSPENSION 30 ML UDCUP PO PRN (07:00)
[2023-02-09] MEDS ORDERED: ONDANSETRON HCL 4 MG TABLET PO PRN (07:00)
[2023-02-09] MEDS ORDERED: CloNIDine HCL 0.1 MG TABLET PO PRN (07:00)
[2023-02-09] MEDS ORDERED: IBUPROFEN 400 MG TABLET PO PRN (07:00)
[2023-02-09] MEDS ORDERED: ACETAMINOPHEN 325 MG TABLET PO PRN (07:00)
[2023-02-09 07:37] LABS: BASOPHILS % (AUTO) 0.6 % (0.0-2.0); EOSINOPHILS % (AUTO) 1.8 % (1.0-6.0); HEMOGLOBIN 12.3 g/dL (12.0-16.0); LYMPHOCYTES % (AUTO) 24.3 % (22.0-44.0); MEAN CORPUSCULAR HEMOGLOBIN 29.1 pg (26.0-34.0); MEAN CORPUSCULAR HGB CONC 33.1 G/dL (31.0-37.0); MEAN CORPUSCULAR VOLUME 88 fL (80-100); MONOCYTES # (AUTO) 0.4 K/uL (0.1-1.0); MONOCYTES % (AUTO) 10.3 % (2.0-9.0); NEUTROPHILS # (AUTO) 2.7 K/uL (1.8-7.7); PLATELET COUNT (AUTO) 163 K/uL (150-450); RED BLOOD CELL COUNT(AUTO) 4.21 MIL/uL (4.00-5.20); RED CELL DISTRIBUTION WIDTH 13.4 % (11.5-14.5)
[2023-02-09 07:55] LABS: ALANINE AMINOTRANSFERASE 8 U/L (12-78); ALBUMIN 3.8 g/dL (3.4-5.0); ALKALINE PHOSPHATASE 64 U/L (46-116); ANION GAP 10 mmol/L (8-16); ASPARTATE AMINOTRANSFERASE 14 U/L (15-37); BILIRUBIN,TOTAL 0.4 mg/dL (0.1-1.0); CALCIUM, TOTAL 9.5 mg/dL (8.8-10.5); CARBON DIOXIDE 29 mmol/L (22-29); CHLORIDE 106 mmol/L (98-107); CREATININE 0.85 mg/dL (0.60-1.30); GLOMERULAR FILTR. RATE CALC > 60 mL/min (>60); GLUCOSE,RANDOM 104 mg/dL (70-110); POTASSIUM 4.6 mmol/L (3.5-5.1); SODIUM SERUM 145 mmol/L (136-145); THYROID STIMULATING HORMONE 1.22 uIU/mL (0.36-3.74); TOTAL PROTEIN, SERUM 7.7 g/dL (6.4-8.2)
[2023-02-09 07:57] LABS: HEMOGLOBIN A1C 5.3 % (3.8-5.6)
[2023-02-09] MEDS: SERTRALINE HCL 100 MG TABLET PO SCH (08:12)
[2023-02-09] MEDS: BusPIRone HCL 15 MG TABLET PO SCH ×3 (08:12→17:34)
[2023-02-09] MEDS: AmLODIPine BESYLATE 10 MG TABLET PO SCH (08:13)
[2023-02-09] MEDS: CARVEDILOL 12.5 MG TABLET PO SCH ×2 (08:13→17:34)
[2023-02-09] MEDS: LevETIRAcetam 500 MG TABLET PO SCH ×2 (08:13→17:35)
[2023-02-09] MEDS: GABAPENTIN 300 MG CAPSULE PO SCH ×4 (08:13→21:12)
[2023-02-09] MEDS: LOPERAMIDE HCL 2 MG CAPSULE PO PRN ×2 (08:15→14:36)
[2023-02-09] MEDS ORDERED: AmLODIPine BESYLATE 10 MG TABLET PO SCH (09:00)
[2023-02-09] MEDS ORDERED: LevETIRAcetam 500 MG TABLET PO SCH (09:00)
[2023-02-09] MEDS ORDERED: CARVEDILOL 12.5 MG TABLET PO SCH (09:00)
[2023-02-09 09:02] LABS: CHOL/HDL RATIO 2.9 (3.9-5.7); CHOLESTEROL 212 mg/dL (131-200); HDL CHOLESTEROL 73 mg/dL (40-60); LDL CHOL (CALC.) 125 mg/dL (0-130); TRIGLYCERIDES 70 mg/dL (15-150)
[2023-02-09] MEDS: LORazepam 2 MG TABLET PO PRN (14:35)
[2023-02-09] MEDS: MIRTAZAPINE 15 MG TABLET PO SCH (21:12)
[2023-02-09] MEDS: QUEtiapine FUMARATE 100 MG TABLET PO SCH (21:13)
[2023-02-09] MEDS: TraZODone HCL 100 MG TABLET PO SCH (21:13)
[2023-02-10] MEDS: HALOPERIDOL 5 MG TABLET PO PRN (06:27)
[2023-02-10 08:21] VITALS: BP 115/81; PULSE 81; RESP 17; TEMP 97.9; O2SAT 96
[2023-02-10 08:31] LABS: HEMOGLOBIN A1C 4.8 % (3.8-5.6)
[2023-02-10 08:40] LABS: THYROID STIMULATING HORMONE 0.89 uIU/mL (0.36-3.74)
[2023-02-10 08:42] VITALS: BP 115/81; PULSE 81; RESP 17; TEMP 97.9; O2SAT 96
[2023-02-10] MEDS: IBUPROFEN 400 MG TABLET PO PRN (08:42)
[2023-02-10] MEDS: AmLODIPine BESYLATE 10 MG TABLET PO SCH (08:43)
[2023-02-10] MEDS: SERTRALINE HCL 100 MG TABLET PO SCH (08:43)
[2023-02-10] MEDS: LevETIRAcetam 500 MG TABLET PO SCH ×2 (08:43→17:16)
[2023-02-10] MEDS: BusPIRone HCL 15 MG TABLET PO SCH ×3 (08:43→17:15)
[2023-02-10] MEDS: GABAPENTIN 300 MG CAPSULE PO SCH ×4 (08:43→21:15)
[2023-02-10] MEDS: CARVEDILOL 12.5 MG TABLET PO SCH ×2 (09:25→17:16)
[2023-02-10] MEDS: GuaiFENesin/D-METHORPHAN [SUGAR-FREE] 200-20MG/10 ML SYRUP UDCUP PO PRN (09:27)
[2023-02-10 11:04] LABS: CHOL/HDL RATIO 2.8 (3.9-5.7)
[2023-02-10] MEDS: LORazepam 2 MG TABLET PO PRN (11:43)
[2023-02-10 20:52] VITALS: RESP 20
[2023-02-10 21:01] VITALS: BP 119/73; PULSE 70; RESP 18; TEMP 98; O2SAT 95
[2023-02-10] MEDS: QUEtiapine FUMARATE 100 MG TABLET PO SCH (21:15)
[2023-02-10] MEDS: TraZODone HCL 100 MG TABLET PO SCH (21:15)
[2023-02-10] MEDS: MIRTAZAPINE 15 MG TABLET PO SCH (21:15)
[2023-02-10] MEDS: ZOLPIDEM TARTRATE 10 MG TABLET PO PRN (21:49)
[2023-02-11] MEDS: HALOPERIDOL 5 MG TABLET PO PRN (06:37)
[2023-02-11] MEDS: GABAPENTIN 300 MG CAPSULE PO SCH ×4 (09:27→20:56)
[2023-02-11] MEDS: LevETIRAcetam 500 MG TABLET PO SCH ×2 (09:27→18:03)
[2023-02-11] MEDS: AmLODIPine BESYLATE 10 MG TABLET PO SCH (09:28)
[2023-02-11] MEDS: SERTRALINE HCL 100 MG TABLET PO SCH (09:28)
[2023-02-11] MEDS: CARVEDILOL 12.5 MG TABLET PO SCH ×2 (09:29→18:03)
[2023-02-11] MEDS: BusPIRone HCL 15 MG TABLET PO SCH ×3 (09:29→18:03)
[2023-02-11 09:45] VITALS: BP 144/93; PULSE 86; RESP 18; TEMP 97.5; O2SAT 98
[2023-02-11] MEDS: LOPERAMIDE HCL 2 MG CAPSULE PO PRN ×2 (10:50→14:22)
[2023-02-11 20:18] VITALS: BP 143/86; PULSE 62; RESP 20; TEMP 98.1; O2SAT 95
[2023-02-11] MEDS: TraZODone HCL 100 MG TABLET PO SCH (20:56)
[2023-02-11] MEDS: MIRTAZAPINE 15 MG TABLET PO SCH (20:56)
[2023-02-11] MEDS: QUEtiapine FUMARATE 100 MG TABLET PO SCH (20:56)
[2023-02-12] MEDS: HydrOXYzine PAMOATE 25 MG CAPSULE PO PRN ×2 (03:42→08:30)
[2023-02-12] MEDS: AmLODIPine BESYLATE 10 MG TABLET PO SCH (08:29)
[2023-02-12] MEDS: LevETIRAcetam 500 MG TABLET PO SCH ×2 (08:29→16:29)
[2023-02-12] MEDS: GABAPENTIN 300 MG CAPSULE PO SCH ×3 (08:29→16:29)
[2023-02-12] MEDS: BusPIRone HCL 15 MG TABLET PO SCH ×3 (08:29→16:29)
[2023-02-12] MEDS: SERTRALINE HCL 100 MG TABLET PO SCH (08:29)
[2023-02-12] MEDS: HALOPERIDOL 5 MG TABLET PO PRN (08:29)
[2023-02-12] MEDS: CARVEDILOL 12.5 MG TABLET PO SCH ×2 (08:30→16:29)
[2023-02-12] MEDS: GuaiFENesin/D-METHORPHAN [SUGAR-FREE] 200-20MG/10 ML SYRUP UDCUP PO PRN (08:54)
[2023-02-12 09:05] VITALS: BP 136/96; PULSE 72; RESP 17; TEMP 98.2
[2023-02-12 09:45] VITALS: BP 136/96; PULSE 72; RESP 18; TEMP 98.2
[2023-02-12] MEDS: IBUPROFEN 400 MG TABLET PO PRN (09:47)
[2023-02-12 16:30] VITALS: BP 141/83; PULSE 63; RESP 18; TEMP 97.5; O2SAT 96
[2023-02-12] MEDS ORDERED: SERT-162 PO (18:33)
[2023-02-12] MEDS ORDERED: BUSP15 PO (18:35)
[2023-02-12] MEDS ORDERED: QUET100T PO (18:35)
[2023-02-13] MEDS ORDERED: LEVE500T20 PO (04:11)
[2023-02-13] MEDS ORDERED: SERT-162 PO (04:11)
[2023-02-13] MEDS ORDERED: BUSP15 PO (04:11)
[2023-02-13] MEDS ORDERED: GABA-1181 PO (04:11)
[2023-02-13] MEDS ORDERED: AMLO-258 PO (04:11)
[2023-02-13] MEDS ORDERED: TRAZ-257 PO (04:11)
[2023-02-13] MEDS ORDERED: QUET100T PO (04:11)
[2023-02-13] MEDS ORDERED: MIRT-149 PO (04:11)
[2023-02-13] MEDS ORDERED: CARV12 PO (04:11)
== END 2023-02-12 18:51 | DRG 885 ==
LOC: EMS 15:46 → UNDOADMIN 02-08 01:01 → 3EX 02-08 01:01 → 3EC 02-08 14:53
PROVIDERS: ADMIT Psychiatry & Neurology Psychiatry; ATTEND Psychiatry & Neurology Psychiatry
DX: F33.2 Major depressive disorder, recurrent severe without psychotic features (principal); N18.9 Chronic kidney disease, unspecified; R45.851 Suicidal ideations; F41.1 Generalized anxiety disorder; G40.909 Epilepsy, unspecified, not intractable, without status epilepticus; M19.90 Unspecified osteoarthritis, unspecified site; Z20.822 Contact with and (suspected) exposure to COVID-19; I12.9 Hypertensive chronic kidney disease with stage 1 through stage 4 chronic kidney disease, or unspecified chronic kidney disease; G47.00 Insomnia, unspecified; Z96.649 Presence of unspecified artificial hip joint; G31.84 Mild cognitive impairment of uncertain or unknown etiology; Z79.899 Other long term (current) drug therapy; Z86.73 Personal history of transient ischemic attack (TIA), and cerebral infarction without residual deficits
CPT/HCPCS: 70450; 80053; 80061; 83036; 84443; 85025; 99285; G0480; J1200; J1630; J2060